=== PATIENT | female | born 1995 | race Two or more races ===

== ENCOUNTER 2019-04-14 02:54 | Emergency (ER) | payer MEDICAID ==
[~2019-04-14] VITALS: Ht 165.1 cm; Wt 62.6 kg
[2019-04-14 03:00] VITALS: BP 113/70
== END 2019-04-14 03:49 | disposition left against medical advice (07) ==
LOC: ER 02:58
DX: J02.9 Acute pharyngitis, unspecified (principal); Z53.21 Procedure and treatment not carried out due to patient leaving prior to being seen by health care provider

== ENCOUNTER → 2019-09-16 | Outpatient (CLI) | payer OTHER | END | disposition home or self-care (01) | LOC: LAB 14:11 | PROVIDERS: ATTEND Preventive Medicine Preventive Medicine/Occupational Environmental Medicine | DX: Z02.1 Encounter for pre-employment examination (principal) | CPT/HCPCS: 86735; 86762; 86765 ==